=== PATIENT | female | born 1970 | race Two or more races ===

== ENCOUNTER 2017-10-05 05:22 | Emergency (ER) | payer MEDICAID ==
[~2017-10-05] VITALS: Ht 160 cm; Wt 81.4 kg
[2017-10-05] MEDS ORDERED: ONDANSETRON ODT 4 MG TAB PO ONE (06:45)
[2017-10-05 07:25] VITALS: BP 170/88
[2017-10-05 07:37] LABS: Basophils # (auto) 0 uL; Lymphocytes # (auto) 1.5 uL; Mean Corpuscular Volume 73.2 fL (80.0-100.0); Monocytes # (auto) 0.4 uL; Neutrophils # (auto) 2.2 uL; White Blood Cell 4.2 10^3/uL (4.4-10.8)
[2017-10-05 07:38] LABS: Basophils % (auto) 1.1 % (0.0-2.0); Eosinophils # (auto) 0.2 uL; Eosinophils % (auto) 3.9 % (0.0-7.0); Hematocrit 36.5 % (36.0-46.0); Hemoglobin 11.7 g/dL (12.2-16.2); Lymphocytes % (auto) 35.2 % (10.0-50.0); Mean Corpuscular Hemoglobin 23.5 pg (28.0-32.0); Monocytes % (auto) 8.5 % (0.0-12.0); Neutrophils % (auto) 51.3 % (37.0-80.0); Nucleated Red Blood Cells % 0.2 %; Platelet Count (auto) 204 10^3/uL (140-450); Red Blood Cells 4.99 10^6/uL (4.0-5.20)
[2017-10-05 07:50] LABS: Albumin 3.8 g/dL (3.4-5.0); Calcium 8.3 mg/dL (8.5-10.1); Potassium 3.9 mmol/L (3.5-5.1)
[2017-10-05 07:52] LABS: Bilirubin, Total 0.7 mg/dL (0.2-1.0); Total Protein 7.8 g/dL (6.4-8.2)
[2017-10-05 08:07] LABS: Red Cell Distribution Width 20.3 % (11.8-14.3)
== END 2017-10-05 08:20 | disposition home or self-care (01) ==
LOC: ER 05:22
DX: K80.20 Calculus of gallbladder without cholecystitis without obstruction (principal); Z88.6 Allergy status to analgesic agent
CPT/HCPCS: 36415; 76705; 80053; 81002; 82962; 83690; 85025; 99285; Q0162

== ENCOUNTER 2019-01-21 03:31 | Emergency (ER) | payer MEDICAID ==
[~2019-01-21] VITALS: Ht 162.6 cm; Wt 81.6 kg
[2019-01-21] MEDS ORDERED: cloNIDine HCL 0.1 MG TAB PO ONE (04:15)
[2019-01-21 04:16] LABS: Basophils # (auto) 0.1 uL; Basophils % (auto) 2.4 % (0.0-2.0); Eosinophils # (auto) 0.2 uL; Eosinophils % (auto) 6.6 % (0.0-7.0); Hematocrit 37.1 % (36.0-46.0); Hemoglobin 12.5 g/dL (12.2-16.2); Lymphocytes # (auto) 1.4 uL; Lymphocytes % (auto) 44.3 % (10.0-50.0); Mean Corpuscular Hemoglobin 27.6 pg (28.0-32.0); Mean Corpuscular Hgb Conc. 33.8 g/dL (32.0-36.0); Mean Corpuscular Volume 81.8 fL (80.0-100.0); Monocytes # (auto) 0.4 uL; Monocytes % (auto) 11.8 % (0.0-12.0); Neutrophils # (auto) 1.1 uL; Neutrophils % (auto) 34.9 % (37.0-80.0); Nucleated Red Blood Cells % 0.1 %; Platelet Count (auto) 223 10^3/uL (140-450); Red Blood Cells 4.53 10^6/uL (4.0-5.20); Red Cell Distribution Width 15.9 % (11.8-14.3); White Blood Cell 3.1 10^3/uL (4.4-10.8)
[2019-01-21 04:50] LABS: Albumin 3.8 g/dL (3.4-5.0); Anion Gap 8 (5-15); Blood Urea Nitrogen 11 mg/dL (7-18); Calcium 8.5 mg/dL (8.5-10.1); Carbon Dioxide 25 mmol/L (21-32); Chloride 107 mmol/L (98-107); Glucose 142 mg/dL (74-106); Potassium 3.9 mmol/L (3.5-5.1); Sodium 140 mmol/L (136-145)
[2019-01-21 04:57] LABS: Alanine Aminotransferase 53 U/L (13-56); Alkaline Phosphatase 95 U/L (45-117); Aspartate Aminotransferase 35 U/L (15-37); BUN/Creatinine Ratio 13.8; Bilirubin, Total 0.5 mg/dL (0.2-1.0); GFR African American 99 mL/min; GFR Non-African American 82 mL/min; Total Protein 7.6 g/dL (6.4-8.2)
[2019-01-21 07:30] VITALS: BP 128/88
[2019-01-21] MEDS ORDERED: HYDROcodone-ACET 10/325MG TAB PO ONE (07:30)
== END 2019-01-21 08:30 | disposition home or self-care (01) ==
LOC: ER 03:33
DX: R51 Headache (principal); I10 Essential (primary) hypertension; R11.2 Nausea with vomiting, unspecified; Z88.6 Allergy status to analgesic agent
CPT/HCPCS: 36415; 70450; 80053; 84484; 84702; 85025; 93005

== ENCOUNTER 2019-10-15 20:43 | Emergency (ER) | payer MEDICAID ==
[~2019-10-15] VITALS: Ht 162.6 cm; Wt 81.6 kg
[2019-10-15] MEDS ORDERED: cloNIDine HCL 0.1 MG TAB ONE (21:11)
[2019-10-15] MEDS ORDERED: cloNIDine HCL 0.1 MG TAB PO ONE (21:15)
[2019-10-16 01:45] VITALS: BP 125/81
[2019-10-16] MEDS ORDERED: IBUPROFEN 800 MG TAB PO ONE (01:45)
[2019-10-16] MEDS ORDERED: ONDANSETRON ODT 4 MG TAB PO ONE (01:45)
[2019-10-16] MEDS ORDERED: ACETAMINOPHEN 500 MG TAB PO ONE (01:45)
== END 2019-10-16 02:13 | disposition home or self-care (01) ==
LOC: EDBD 20:43 → ER 20:45
DX: M54.2 Cervicalgia (principal); M54.5 Low back pain; M25.511 Pain in right shoulder; I10 Essential (primary) hypertension; M25.551 Pain in right hip; Z88.6 Allergy status to analgesic agent; V43.62XA Car passenger injured in collision with other type car in traffic accident, initial encounter; Y93.89 Activity, other specified; Y92.488 Other paved roadways as the place of occurrence of the external cause; Y99.8 Other external cause status
CPT/HCPCS: 72040; 72100; 73030; 73502; 99284; Q0162

== ENCOUNTER 2020-05-10 07:05 | Emergency (ER) | payer MEDICAID ==
[~2020-05-10] VITALS: Ht 165.1 cm; Wt 81.6 kg
[2020-05-10 07:51] LABS: Basophils # (auto) 0.1 10 ^3/uL (0-0.2); Basophils % (auto) 1.4 % (0.0-2.0); Eosinophils # (auto) 0.1 10 ^3/uL (0-0.8); Eosinophils % (auto) 2.7 % (0.0-7.0); Hematocrit 41.8 % (36.0-46.0); Hemoglobin 14.1 g/dL (12.2-16.2); Lymphocytes # (auto) 1.4 10 ^3/uL (0.4-5.4); Lymphocytes % (auto) 30.1 % (10.0-50.0); Mean Corpuscular Hgb Conc. 33.8 g/dL (32.0-36.0); Mean Corpuscular Volume 85.6 fL (80.0-100.0); Monocytes # (auto) 0.4 10 ^3/uL (0-1.3); Monocytes % (auto) 8.4 % (0.0-12.0); Neutrophils # (auto) 2.7 10 ^3/uL (1.6-8.6); Neutrophils % (auto) 57.4 % (37.0-80.0); Platelet Count (auto) 169 10^3/uL (140-450); Red Blood Cells 4.88 10^6/uL (4.0-5.20); Red Cell Distribution Width 13.5 % (11.8-14.3); White Blood Cell 4.7 10^3/uL (4.4-10.8)
[2020-05-10 08:03] LABS: Urine Bacteria NONE SEEN /hpf (None Seen); Urine Blood TRACE /uL (Negative); Urine Specific Gravity 1.012 (1.001-1.035); Urine WBC 3 /hpf (0 - 5)
[2020-05-10 08:09] LABS: Albumin 3.7 g/dL (3.4-5.0); BUN/Creatinine Ratio 20.7; Calcium 9.2 mg/dL (8.5-10.1); Potassium 3.9 mmol/L (3.5-5.1)
[2020-05-10 08:13] LABS: Total Protein 7.5 g/dL (6.4-8.2)
[2020-05-10 09:30] VITALS: BP 138/72
== END 2020-05-10 11:25 | disposition home or self-care (01) ==
LOC: ER 07:05
DX: R73.9 Hyperglycemia, unspecified (principal); N39.0 Urinary tract infection, site not specified; I10 Essential (primary) hypertension; Z88.6 Allergy status to analgesic agent
CPT/HCPCS: 36415; 80053; 81001; 81025; 82962; 85025

== ENCOUNTER 2020-07-04 22:17 | Emergency (ER) | payer MEDICAID ==
[~2020-07-04] VITALS: Ht 165.1 cm; Wt 81.6 kg
[2020-07-04 22:26] VITALS: BP 138/92
[2020-07-04 22:39] LABS: Basophils # (auto) 0.1 10 ^3/uL (0-0.2); Basophils % (auto) 1.3 % (0.0-2.0); Eosinophils # (auto) 0.2 10 ^3/uL (0-0.8); Eosinophils % (auto) 2.8 % (0.0-7.0); Hematocrit 40.5 % (36.0-46.0); Hemoglobin 13.8 g/dL (12.2-16.2); Lymphocytes # (auto) 1.8 10 ^3/uL (0.4-5.4); Lymphocytes % (auto) 28.7 % (10.0-50.0); Mean Corpuscular Hemoglobin 28.5 pg (28.0-32.0); Mean Corpuscular Volume 83.9 fL (80.0-100.0); Monocytes # (auto) 0.4 10 ^3/uL (0-1.3); Monocytes % (auto) 6.1 % (0.0-12.0); Neutrophils # (auto) 3.9 10 ^3/uL (1.6-8.6); Neutrophils % (auto) 61.1 % (37.0-80.0); Nucleated Red Blood Cells % 0.1 %; Platelet Count (auto) 196 10^3/uL (140-450); Red Blood Cells 4.83 10^6/uL (4.0-5.20); Red Cell Distribution Width 13.8 % (11.8-14.3); White Blood Cell 6.3 10^3/uL (4.4-10.8)
[2020-07-04 23:02] LABS: Albumin 3.6 g/dL (3.4-5.0); Anion Gap 6 (5-15); Blood Urea Nitrogen 19 mg/dL (7-18); Carbon Dioxide 28 mmol/L (21-32); Chloride 102 mmol/L (98-107); Glucose 286 mg/dL (74-106); Magnesium 2.1 mg/dL (1.6-2.6); Potassium 3.7 mmol/L (3.5-5.1); Sodium 136 mmol/L (136-145)
[2020-07-04 23:03] LABS: INR 0.95 (0.9-1.15); Partial Thromboplastin Time 25.7 sec (23.0-31.2)
[2020-07-04 23:17] LABS: Alanine Aminotransferase 43 U/L (13-56); Alkaline Phosphatase 95 U/L (45-117); Aspartate Aminotransferase 18 U/L (15-37); BUN/Creatinine Ratio 21.3; Bilirubin, Total 0.7 mg/dL (0.2-1.0); GFR African American 87 mL/min; GFR Non-African American 72 mL/min; Total Protein 7.5 g/dL (6.4-8.2)
== END 2020-07-05 06:53 | disposition home or self-care (01) ==
LOC: ER 22:18
DX: R07.89 Other chest pain (principal); E11.9 Type 2 diabetes mellitus without complications; M25.50 Pain in unspecified joint; I10 Essential (primary) hypertension; Z88.5 Allergy status to narcotic agent
CPT/HCPCS: 36415; 71045; 80053; 83735; 83880; 84443; 84484; 85025; 85379; 85610; 85730; 93005